=== PATIENT | male | born 1975 | race Hispanic/Latino ===

== ENCOUNTER 2017-10-31 10:13 | Emergency (ER) | payer OTHER ==
[2017-10-31 10:55] LABS: #Eosinphils 0.1 thou/uL (0.0-0.7); #Lymphocytes 1.5 thou/uL (1.20-3.40); #Monocytes 0.4 thou/uL (0.11-0.59); #Neutrophils 3.5 thou/uL (1.40-6.50); %Basophils 0.2 % (0.0-1.0); %Eosinophils 1.1 % (0.0-10.0); %Lymphocytes 27.6 % (21.0-51.0); %Monocytes 6.9 % (0.0-10.0); %Neutrophils 64.3 % (42.0-75.0); Hemoglobin 16.1 g/dL (14.0-18.0); Mean Corpuscular HGB CONC 34.7 g/dL (32.0-36.0); Mean Corpuscular Hemoglobin 31.7 pg (27.0-31.0); Mean Corpuscular Volume 91.5 fl (80.0-94.0); Mean Platelet Volume 7.3 fL (7.4-10.4); Platelet Count 183 thou/uL (130-400); Red Blood Cell (RBC) Count 5.08 mill/uL (4.70-6.10); White Blood Cell (WBC) Count 5.5 thou/uL (4.8-10.8)
[2017-10-31 11:26] LABS: ALT (SGPT) 45 U/L (8-55); AST (SGOT) 26 U/L (5-34); Albumin 4.2 g/dL (3.5-5.0); Alkaline Phosphatase 100 U/L (40-150); Anion Gap 14 mmol/L (10-20); BUN (Urea Nitrogen) 13 mg/dL (8.9-20.6); Bilirubin, Total 0.5 mg/dL (0.2-1.2); Calc. Creatinine Clearance 0 mL/min (70-130); Calcium 10.3 mg/dL (7.8-10.44); Carbon Dioxide 24 mmol/L (22-29); Chloride 101 mmol/L (98-107); Estimated GFR-MDRD 65; Globulin 3.1 g/dL (2.4-3.5); Glucose 394 mg/dL (70-105); Lipase 24 U/L (8-78); Potassium 4.7 mmol/L (3.5-5.1); Protein, Total 7.3 g/dL (6.0-8.3); Sodium 134 mmol/L (136-145)
[2017-10-31 12:11] LABS: Bilirubin Negative (Negative); Blood, Urine Moderate (Negative); Clarity CLEAR (Clear); Glucose, Urine (Dipstick) >=1000 mg/dL (Negative); Leukocyte Negative (Negative); Nitrite Negative (Negative); Protein, Urine (Dipstick) Negative (Neg-Trace); Specific Gravity, Urine 1.036 (1.002-1.036); Urobilinogen 0.2 mg/dL (0.2-1.0); pH, Urine 5.5 (5.0-9.0)
[2017-10-31 12:12] LABS: Bacteria/HPF None Seen HPF (None Seen); Hyaline Casts/LPF 0-3 HYALINE CAST LPF (0-3 Hyaline); Squamous Epithelial None Seen HPF (0-3); WBC/HPF None Seen HPF (0-3)
== END 2017-10-31 12:54 | disposition home or self-care (01) ==
LOC: ERS 10:13
DX: N20.0 Calculus of kidney (principal); E11.9 Type 2 diabetes mellitus without complications; Z79.84 Long term (current) use of oral hypoglycemic drugs
CPT/HCPCS: 36415; 80053; 81003; 81015; 83690; 85025; 94760

== ENCOUNTER 2017-11-07 23:17 | Emergency (ER) | payer OTHER ==
[2017-11-08 00:59] LABS: Bilirubin Negative (Negative); Blood, Urine Large (Negative); Clarity CLEAR (Clear); Glucose, Urine (Dipstick) 100 mg/dL (Negative); Leukocyte Negative (Negative); Nitrite Negative (Negative); Protein, Urine (Dipstick) Negative (Neg-Trace); Specific Gravity, Urine 1.025 (1.002-1.036); Urobilinogen 0.2 mg/dL (0.2-1.0); pH, Urine 5.5 (5.0-9.0)
[2017-11-08 01:02] LABS: Bacteria/HPF None Seen HPF (None Seen); Hyaline Casts/LPF 0-3 HYALINE CAST LPF (0-3 Hyaline); Squamous Epithelial None Seen HPF (0-3); WBC/HPF 0-3 HPF (0-3)
--- NOTE | 2017-11-08 11:58 | ULT ---
PRELIMINARY REPORT/[facility]/EMERGENTY AFTER-HOURS PROCEDURE US Retroperitoneal Complete CLINICAL HISTORY: 42 years old, male; Pain; Abdominal pain; Localized; Left; Patient HX: Lt flank pain. ; Additional in fo: HX: Bilat kidney stones TECHNIQUE: Real-time ultrasound of the retroperitoneum (complete) with image documentation. COMPARISON: No relevant prior studies available. FINDINGS: Right kidney: No acute findings. 11.7 cm. No solid mass. No hydronephrosis. Nonobstructing renal ston es. Right ureteral jet seen into the bladder. Left kidney: 11.8 cm. Moderate hydnephrosis with echogenic 6 mm focus at the UVJ consistent with junc tion stone. Nonobstructing renal stones. Left left ureteral jet. IMPRESSION: Echogenic focus left ureterovesicular junction consistent with obstructing stone. Bilateral renal sto minna. Thank you for allowing us to participate in the care of your patient. Dictated and Authenticated by: Manav Mendosa MD 11/08/2017 1:28 AM Central Time ([place] & [place]) FINAL REPORT ULTRASOUND RENAL BILATERAL STANDARD: History: Left sided flank pain. Comparison: CT abdomen/pelvis from 02-09-17. FINDINGS: Findings and impression agree with the preliminary report. Code QA. POS: [facility]
== END 2017-11-08 01:55 | disposition home or self-care (01) ==
LOC: ERS 23:17
DX: N23 Unspecified renal colic (principal); E11.9 Type 2 diabetes mellitus without complications; Z79.84 Long term (current) use of oral hypoglycemic drugs
CPT/HCPCS: 76770; 81003; 81015

== ENCOUNTER 2020-11-03 23:01 | Emergency (ER) | payer OTHER ==
[2020-11-04] MEDS ORDERED: Proparacaine 0.5% Opth 15 ML BOT ONE (00:22)
[2020-11-04] MEDS ORDERED: Fluorescein Opthalmic Strip ONE (00:22)
== END 2020-11-04 00:59 | disposition home or self-care (01) ==
LOC: ERS 23:01
DX: S05.02XA Injury of conjunctiva and corneal abrasion without foreign body, left eye, initial encounter (principal); E11.9 Type 2 diabetes mellitus without complications; Z79.84 Long term (current) use of oral hypoglycemic drugs; X58.XXXA Exposure to other specified factors, initial encounter
CPT/HCPCS: 99283

== ENCOUNTER 2020-11-10 20:52 | Inpatient (IN) | payer OTHER ==
[2020-11-10] MEDS ORDERED: Lidocaine 1% w/Epinephrine 1:100K 20 ML VIAL ONE (22:05)
[2020-11-10 23:16] LABS: #Eosinphils 0.1 thou/uL (0.0-0.7); #Lymphocytes 2.8 thou/uL (1.20-3.40); #Monocytes 0.8 thou/uL (0.11-0.59); #Neutrophils 7.6 thou/uL (1.40-6.50); %Basophils 0.3 % (0.0-1.0); %Lymphocytes 24.6 % (21.0-51.0); %Monocytes 7.4 % (0.0-10.0); %Neutrophils 66.8 % (42.0-75.0); Hemoglobin 16.2 g/dL (14.0-18.0); Mean Corpuscular HGB CONC 35.1 g/dL (32.0-36.0); Mean Corpuscular Hemoglobin 31.9 pg (27.0-31.0); Mean Corpuscular Volume 90.9 fL (78.0-98.0); Mean Platelet Volume 7.6 fL (7.4-10.4); Platelet Count 197 thou/uL (130-400); RBC Distribution Width 11.5 % (11.5-14.5); Red Blood Cell (RBC) Count 5.06 mill/uL (4.70-6.10); White Blood Cell (WBC) Count 11.3 thou/uL (4.8-10.8)
[2020-11-10] MEDS ORDERED: Morphine 4 MG/ML VIAL ONE (23:20)
[2020-11-10] MEDS ORDERED: Ondansetron PF 4 MG/2 ML Vial ONE (23:20)
[2020-11-10 23:36] LABS: ALT (SGPT) 14 U/L (8-55); AST (SGOT) 12 U/L (5-34); Albumin 3.8 g/dL (3.5-5.0); Alkaline Phosphatase 113 U/L (40-110); Anion Gap 14 mmol/L (10-20); BUN (Urea Nitrogen) 12 mg/dL (8.9-20.6); Bilirubin, Total 0.5 mg/dL (0.2-1.2); Calc. Creatinine Clearance 0 mL/min (70-130); Calcium 9.4 mg/dL (7.8-10.44); Carbon Dioxide 25 mmol/L (22-29); Chloride 101 mmol/L (98-107); Globulin 3.8 g/dL (2.4-3.5); Glucose 303 mg/dL (70-105); Potassium 4.1 mmol/L (3.5-5.1); Protein, Total 7.6 g/dL (6.0-8.3); Sodium 136 mmol/L (136-145)
[2020-11-11] MEDS ORDERED: Cefepime 2 GM VIAL ONE ×2 (00:57→13:11)
[2020-11-11] MEDS ORDERED: Vancomycin 1 GM/200 ML BAG ONE (01:06)
[2020-11-11] MEDS ORDERED: Morphine 4 MG/ML VIAL ONE (01:16)
[2020-11-11] MEDS ORDERED: Dextrose 50% Abboject 50 ML SYRINGE SLOW IVP PRN (02:27)
[2020-11-11] MEDS ORDERED: Dextrose 5% in Water 1,000 ML IV PRN (02:27)
[2020-11-11] MEDS ORDERED: Sodium Chloride 0.9% 1,000 ML IV SCH (02:30)
[2020-11-11] MEDS ORDERED: HYDROcodone/Acetaminophen 5/325 mg Tablet PO PRN (02:31)
[2020-11-11] MEDS ORDERED: Acetaminophen 325 MG TAB PO PRN (02:31)
[2020-11-11] MEDS ORDERED: Senokot S 8.6-50 MG TAB PO PRN (02:31)
[2020-11-11] MEDS ORDERED: Ondansetron ODT 4 MG TAB PO PRN (02:31)
[2020-11-11 05:06] LABS: #Basophils 0.1 thou/uL (0.0-0.2); #Eosinphils 0.1 thou/uL (0.0-0.7); #Lymphocytes 2.7 thou/uL (1.20-3.40); #Monocytes 0.7 thou/uL (0.11-0.59); %Basophils 0.8 % (0.0-1.0); %Eosinophils 0.8 % (0.0-10.0); %Lymphocytes 28.2 % (21.0-51.0); %Monocytes 7.7 % (0.0-10.0); %Neutrophils 62.5 % (42.0-75.0); Hemoglobin 14.2 g/dL (14.0-18.0); Mean Corpuscular Hemoglobin 32.9 pg (27.0-31.0); Mean Corpuscular Volume 91.2 fL (78.0-98.0); Mean Platelet Volume 7.6 fL (7.4-10.4); Platelet Count 174 thou/uL (130-400); RBC Distribution Width 11.4 % (11.5-14.5); Red Blood Cell (RBC) Count 4.31 mill/uL (4.70-6.10); White Blood Cell (WBC) Count 9.5 thou/uL (4.8-10.8)
[2020-11-11 05:11] LABS: Hemoglobin A1c 9.7 % (4.0-6.0)
[2020-11-11 05:24] LABS: Anion Gap 11 mmol/L (10-20); BUN (Urea Nitrogen) 11 mg/dL (8.9-20.6); Calc. Creatinine Clearance 0 mL/min (70-130); Carbon Dioxide 22 mmol/L (22-29); Chloride 103 mmol/L (98-107); Glucose 515 mg/dL (70-105); Potassium 4.3 mmol/L (3.5-5.1); Sodium 132 mmol/L (136-145)
[2020-11-11] MEDS ORDERED: HYDROcodone/Acetaminophen 5/325 mg Tablet ONE (06:21)
[2020-11-11] MEDS: HYDROcodone/Acetaminophen 5/325 mg Tablet PO PRN (06:32)
[2020-11-11] MEDS ORDERED: HumaLOG 300 UNITS/3 ML VIAL ONE (06:49)
[2020-11-11] MEDS: HumaLOG 300 UNITS/3 ML VIAL SC PRN ×3 (06:51→21:37)
[2020-11-11 07:38] LABS: SARS-CoV-2 PCR by NAA Not Detected (NotDetected)
[2020-11-11] MEDS ORDERED: Ondansetron PF 4 MG/2 ML Vial ONE (07:59)
[2020-11-11] MEDS: Ondansetron PF 4 MG/2 ML Vial IVP PRN (08:10)
[2020-11-11] MEDS: Cefepime 2 GM in Sodium Chloride 0.9% 100 ML IVPB SCH (12:52)
[2020-11-11 17:15] VITALS: BMI 29.9
[2020-11-11] MEDS: VANCOMYCIN 1.25 GM/250 ML BAG 1.25 GM in Premix Bag 1 BAG IVPB SCH (18:11)
[2020-11-12] MEDS: Cefepime 2 GM in Sodium Chloride 0.9% 100 ML IVPB SCH ×2 (00:02→13:58)
[2020-11-12] MEDS: VANCOMYCIN 1.25 GM/250 ML BAG 1.25 GM in Premix Bag 1 BAG IVPB SCH ×3 (01:45→18:23)
[2020-11-12] MEDS: HumaLOG 300 UNITS/3 ML VIAL SC PRN ×3 (05:19→21:27)
[2020-11-12] MEDS: HYDROcodone/Acetaminophen 5/325 mg Tablet PO PRN ×3 (10:04→21:29)
[2020-11-12] MEDS: Ondansetron PF 4 MG/2 ML Vial IVP PRN (12:40)
[2020-11-12] MEDS ORDERED: Morphine 4 MG/ML VIAL SLOW IVP PRN (12:43)
[2020-11-12 18:12] LABS: Vancomycin, Trough 12.6 ug/mL
[2020-11-12] MEDS: glipiZIDE 5 MG TAB PO SCH (18:23)
[2020-11-12] MEDS: metFORMIN 500 MG TAB PO SCH (18:23)
[2020-11-13] MEDS: Cefepime 2 GM in Sodium Chloride 0.9% 100 ML IVPB SCH ×2 (01:26→12:26)
[2020-11-13] MEDS: VANCOMYCIN 1.25 GM/250 ML BAG 1.25 GM in Premix Bag 1 BAG IVPB SCH ×2 (01:30→08:52)
[2020-11-13] MEDS: HYDROcodone/Acetaminophen 5/325 mg Tablet PO PRN ×2 (05:25→11:06)
[2020-11-13] MEDS: HumaLOG 300 UNITS/3 ML VIAL SC PRN ×2 (05:29→11:46)
[2020-11-13 07:22] VITALS: TEMP 97.8
[2020-11-13] MEDS: glipiZIDE 5 MG TAB PO SCH (08:52)
[2020-11-13] MEDS: metFORMIN 500 MG TAB PO SCH (08:53)
[2020-11-13 11:13] VITALS: BP 130/76
== END 2020-11-13 16:13 | disposition home or self-care (01) | DRG 854 ==
LOC: ERS 20:52 → OBSVTOIN 11-11 01:52 → ERHOLD 11-11 01:52 → T4-A 11-11 15:37
PROVIDERS: ADMIT Student in an Organized Health Care Education/Training Program; ATTEND Family Medicine
PROC: 0J990ZZ Drainage of Buttock Subcutaneous Tissue and Fascia, Open Approach (ICD-10-PCS; principal; 2020-11-11)
DX: A41.9 Sepsis, unspecified organism (principal); L02.31 Cutaneous abscess of buttock; L03.317 Cellulitis of buttock; Z79.84 Long term (current) use of oral hypoglycemic drugs; R00.0 Tachycardia, unspecified; E11.65 Type 2 diabetes mellitus with hyperglycemia
CPT/HCPCS: 10060; 36415; 36416; 80048; 80053; 80202; 83036; 83605; 84443; 85025; 87040; 87070; 87077; 87186; 87205; 87635; 96365; 96366; 96367; 96375; 96376; G0378; J0692; J1815; J2270; J2405; J3370; J3490; U0003; U0005